=== PATIENT | female | born 1990 | race Caucasian/White ===

== ENCOUNTER 2018-05-04 16:31 | Emergency (ER) | payer BC, OTHER ==
[2018-05-04] MEDS ORDERED: Acetaminophen 500 MG TAB ONE (17:02)
[2018-05-04] MEDS ORDERED: Ondansetron ODT 4 MG TAB ONE (17:03)
== END 2018-05-04 17:42 | disposition home or self-care (01) ==
LOC: MADERS 16:31
DX: B34.9 Viral infection, unspecified (principal); I10 Essential (primary) hypertension; F41.9 Anxiety disorder, unspecified; Z79.899 Other long term (current) drug therapy
CPT/HCPCS: 87804; 99283; Q0162

== ENCOUNTER 2018-08-29 08:01 | Emergency (ER) | payer BC | END 2018-08-29 09:30 | disposition home or self-care (01) | LOC: MADERS 08:01 | DX: J01.90 Acute sinusitis, unspecified (principal); I10 Essential (primary) hypertension; F41.9 Anxiety disorder, unspecified | CPT/HCPCS: 99283 ==

== ENCOUNTER 2018-09-04 15:52 | Emergency (ER) | payer MEDICAID ==
[2018-09-04 16:32] LABS: Bilirubin Negative (Negative); Blood, Urine Moderate (Negative); Clarity Clear (Clear); Glucose, Urine (Dipstick) Negative (Negative); Leukocyte Small (Negative); Nitrite Negative (Negative); Protein, Urine (Dipstick) 30 mg/dL (Neg-Trace); Urobilinogen 0.2 mg/dL (0.2-1.0); pH, Urine 6.5 (5.0-9.0)
[2018-09-04 16:33] LABS: Pregnancy Test - Urine (BHCG) Negative (Negative); Pregu Control Background? CLEAR/WHITE (CLR/WHITE); Pregu Control Bar Appear? YES (CONTROL BAR)
[2018-09-04 16:39] LABS: Bacteria/HPF Rare-Few HPF (None Seen)
--- NOTE | 2018-09-04 17:27 | CT ---
CT OF THE ABDOMEN AND PELVIS WITHOUT IV CONTRAST: Date: 09/04/18 INDICATION: Right low back pain and flank pain with dysuria. COMPARISON: None. FINDINGS: There is a small calcified granuloma in the right lower lobe. There is fatty infiltration of the liver where there is focal fatty sparing near the gallbladder janessa a. Unopacified pancreas, spleen, and adrenal glands are within normal limits. There is moderate right-sided hydronephrosis and hydroureter. There is a 2.6 mm stone within the dist al right ureter. The bladder is decompressed. Unopacified left kidney is unremarkable. No free fluid or enlarged lymph nodes are seen within the upper abdomen. There is a normal appendix i n the right lower quadrant. Opacified colon and small bowel appear within normal limits. Small suspec melanie follicular cysts are seen affecting the right adnexa. No free fluid is evident. No acute osseous abnormality is evident. IMPRESSION: 1. Moderate right hydronephrosis with a distal right ureteral stone measuring 2.6 mm. 2. Fatty liver. POS: [facility]
[2018-09-04] MEDS ORDERED: Ketorolac Tromethamine 30 MG/ML VIAL ONE (17:42)
[2018-09-04] MEDS ORDERED: Sodium Chloride 0.9% 100 ML ONE (17:42)
[2018-09-04] MEDS ORDERED: Ondansetron PF 4 MG/2 ML Vial ONE (17:42)
[2018-09-04] MEDS ORDERED: Piperacillin/Tazobactam 3.375 GM VIAL ONE (17:42)
[2018-09-04 17:55] LABS: #Lymphocytes 0.8 thou/uL (1.20-3.40); #Monocytes 0.3 thou/uL (0.11-0.59); #Neutrophils 3.1 thou/uL (1.40-6.50); %Basophils 0.4 % (0.0-1.0); %Eosinophils 0.2 % (0.0-10.0); %Lymphocytes 19.5 % (21.0-51.0); Hemoglobin 14.3 g/dL (12.0-16.0); Mean Corpuscular HGB CONC 33.4 g/dL (32.0-36.0); Mean Corpuscular Hemoglobin 30.2 pg (27.0-31.0); Mean Corpuscular Volume 90.6 fL (78.0-98.0); Mean Platelet Volume 10.6 fL (7.4-10.4); Platelet Count 218 thou/uL (130-400); RBC Distribution Width 10.8 % (11.5-14.5); Red Blood Cell (RBC) Count 4.74 mill/uL (4.20-5.40); White Blood Cell (WBC) Count 4.3 thou/uL (4.8-10.8)
[2018-09-04 18:12] LABS: ALT (SGPT) 34 U/L (8-55); AST (SGOT) 22 U/L (5-34); Albumin 4.9 g/dL (3.5-5.0); Alkaline Phosphatase 63 U/L (40-150); Anion Gap 15 mmol/L (10-20); BUN (Urea Nitrogen) 11 mg/dL (7.0-18.7); Bilirubin, Total 0.5 mg/dL (0.2-1.2); Calc. Creatinine Clearance 0 mL/min (70-130); Calcium 9.8 mg/dL (7.8-10.44); Carbon Dioxide 24 mmol/L (22-29); Chloride 104 mmol/L (98-107); Estimated GFR-MDRD 63; Globulin 3.2 g/dL (2.4-3.5); Glucose 94 mg/dL (70-105); Protein, Total 8.1 g/dL (6.0-8.3); Sodium 139 mmol/L (136-145)
[2018-09-04 18:37] LABS: Bilirubin Negative (Negative); Blood, Urine Moderate (Negative); Glucose, Urine (Dipstick) Negative (Negative); Leukocyte Negative (Negative); Nitrite Negative (Negative); Protein, Urine (Dipstick) 30 mg/dL (Neg-Trace); Urobilinogen 0.2 mg/dL (0.2-1.0)
[2018-09-04 18:39] LABS: Clarity Hazy (Clear)
[2018-09-04 18:45] LABS: Bacteria/HPF Rare-Few HPF (None Seen); Squamous Epithelial 0-3 HPF (0-3); WBC/HPF 0-3 HPF (0-3)
[2018-09-04] MEDS ORDERED: Tamsulosin HCl 0.4 MG CAP ONE (19:02)
== END 2018-09-04 19:16 | disposition home or self-care (01) ==
LOC: MADERS 15:52
DX: N13.2 Hydronephrosis with renal and ureteral calculous obstruction (principal); I10 Essential (primary) hypertension; F41.9 Anxiety disorder, unspecified
CPT/HCPCS: 36415; 51701; 74176; 80053; 81003; 81015; 81025; 83605; 85025; 87040; 87086; 96365; 96375; A4353; J1885; J2405; J2543; J7050